=== PATIENT | female | born 1990 | race American Indian/Alaskan Native ===

== ENCOUNTER 2018-12-08 12:00 | Emergency (ER) | payer MEDICAID ==
[2018-12-08 12:07] VITALS: BP 136/83
--- NOTE | 2018-12-08 12:08 | Emergency Department Report ---
Blank Doc - Documentation Documentation: This is a 28-year-old female that presents with bilateral cervical paraspinal pain. No midline spine tenderness. No fever or chisll. No headache. STated 9 weeks ago had a vaginal delivery with no complications. Patient denies getting any epidural. This initial assessment/diagnostic orders/clinical plan/treatment(s) is/are subject to change based on patient's health status, clinical progression and re- assessment by fellow clinical providers in the ED. Further treatment and workup at subsequent clinical providers discretion. Patient/guardians urged not to elope from the ED as their condition may be serious if not clinically assessed and managed. Initial orders include: 1- Patient sent to [facility] for further evaluation and treatment
[2018-12-08] MEDS ORDERED: TORADOL IM ONE (12:45)
--- NOTE | 2018-12-08 13:28 | Emergency Department Report ---
ED Neck Pain/Injury HPI - General Chief Complaint: Neck Pain/Injury Stated Complaint: NECK PAIN/BACK PAIN Time Seen by Provider: 12/08/18 12:05 Mode of arrival: Ambulatory Limitations: No Limitations - History of Present Illness Initial Comments: 28-year-old female presents to the hospital complaints of left-sided neck pain this started the day after discharge from the hospital. Patient is 9 days status post vaginal delivery. She did not receive epidural. She denies any. Nasal infections or complications. She denies fever, sore throat, ear pain, nausea, vomiting, blurred patient, weakness, or numbness. Pain is constant, worse with palpation, movement, rated 10/10 in intensity. She is not taking any medication for pain because she is breast-feeding. [facility]: Dr. Kelly Brooke - Related Data Previous Rx's Medication Instructions Recorded Last Taken Type oxyCODONE /ACETAMINOPHEN [Percocet 1 tab PO Q6HR PRN #20 tablet 11/29/18 Unknown Rx 5/325] Cyclobenzaprine [Flexeril] 10 mg PO TID PRN #20 tablet 12/08/18 Unknown Rx Ibuprofen [Motrin 600 MG tab] 600 mg PO Q8H PRN #30 tablet 12/08/18 Unknown Rx Allergies Allergy/AdvReac Type Severity Reaction Status Date / Time No Known Allergies Allergy Verified 11/29/18 11:15 ED Review of Systems ROS: Stated complaint: NECK PAIN/BACK PAIN Other details as noted in HPI Comment: All other systems reviewed and negative ED Past Medical Hx - Past Medical History Previous Medical History?: No Hx Hypertension: No Hx Diabetes: No Hx Deep Vein Thrombosis: No Hx Renal Disease: No Hx Sickle Cell Disease: No Hx Seizures: No Hx Asthma: No Hx HIV: No - Surgical History Past Surgical History?: Yes - Social History Smoking Status: Never Smoker Substance Use Type: None - Medications Home Medications: Home Medications Medication Instructions Recorded Confirmed Last Taken Type oxyCODONE /ACETAMINOPHEN [Percocet 1 tab PO Q6HR PRN #20 tablet 11/29/18 Unknown Rx 5/325] Cyclobenzaprine [Flexeril] 10 mg PO TID PRN #20 tablet 12/08/18 Unknown Rx Ibuprofen [Motrin 600 MG tab] 600 mg PO Q8H PRN #30 tablet 12/08/18 Unknown Rx ED Physical Exam - General Limitations: No Limitations - Other Other exam information: General: No limitations, patient is alert in no acute distress Head exam: Atraumatic, normocephalic Eyes exam: Normal appearance, pupils equal reactive to light, extraocular movements intact ENT: Moist mucous membrane, normal oropharynx without exudate. Neck exam: Normal inspection, full range of motion, no meningismus, left sternocleidomastoid and trapezius muscle tenderness extending from the base of the neck to the shoulder. Worse with movement. Respiratory exam: Clear to auscultation bilateral, no wheezes, rales, crackles Cardiovascular: Normal rate and rhythm, normal heart sounds Abdomen: Soft, nondistended, and nontender, with normal bowel sounds, no rebound, or guarding Extremity: Full range of motion normal inspection no deformity Back: Normal Inspection, full range of motion, no tenderness Neurologic: Alert, oriented x3, cranial nerves intact, no motor or sensory deficit Psychiatric: normal affect, normal mood Skin: Warm, dry, intact ED Course Vital Signs 12/08/18 12:06 Temperature 98.4 F Pulse Rate 51 L Respiratory 20 Rate Blood Pressure 136/83 O2 Sat by Pulse 100 Oximetry ED Medical Decision Making - Medical Decision Making Patient has unilateral neck pain along the muscle without signs of infection, associated symptoms, or lymphadenopathy. Will be treated symptomatically for muscle strain - Differential Diagnosis muscle spasm, infection, sah Critical Care Time: No Critical care attestation.: If time is entered above; I have spent that time in minutes in the direct care of this critically ill patient, excluding procedure time. ED Disposition Clinical Impression: Neck muscle spasm Disposition: - TO HOME OR SELFCARE Is pt being admited?: No Does the pt Need Aspirin: No Condition: Stable Instructions: Spasmodic Torticollis (ED) Additional Instructions: Take the medication as prescribed. Follow up with your doctor or the clinic/doctor provided. Return if symptoms worsen as indicated by your discharge instructions Your case was discussed with the [facility] doctors because you are breast-feeding. Flexeril is not approved or contraindicated while breast-feeding. There is not enough data to demonstrate benefit or harm to the baby. Please pump and dump will taking Flexeril for 24 hour after your last dose. You do not have to do this with the Motrin Prescriptions: Cyclobenzaprine [Flexeril] 10 mg PO TID PRN #20 tablet PRN Reason: Muscle Spasm Ibuprofen [Motrin 600 MG tab] 600 mg PO Q8H PRN #30 tablet PRN Reason: Pain Referrals: CASANDRA LASSITER MD [Primary Care Provider] - 3-5 Days [facility] [Provider Group] - 3-5 Days Time of Disposition: 13:32
== END 2018-12-08 13:38 | disposition home or self-care (01) ==
LOC: ED 12:00
DX: M54.2 Cervicalgia (principal)
CPT/HCPCS: 96372; 99282; J1885

== ENCOUNTER 2019-02-13 20:40 | Emergency (ER) | payer MEDICAID ==
--- NOTE | 2019-02-13 20:51 | Event Note ---
ED Screening Note ED Screening Note: pt states that two days ago began having white vaginal discharge, states she is having an odor no itching or burning no frequency no dysuria pt is sexually active, states uses protection states she just started control last month LNMP: January 29 no PMHx no allergies to meds +smoker +marijuana +occ drinker This initial assessment/diagnostic orders/clinical plan/treatment(s) is/are subject to change based on patients health status, clinical progression and re- assessment by fellow clinical providers in the ED. Further treatment and workup at subsequent clinical providers discretion. Patient/guardian urged not to elope from the ED as their condition may be serious if not clinically assessed and managed. Initial orders include: UA, urine preg, wet prep, G/C
[2019-02-13 20:52] VITALS: BP 131/84
[2019-02-13 21:20] LABS: Bacteria,Urine 1+ /HPF (Negative); Bilirubin,Urine NEG (Negative); Blood,Urine NEG (Negative); Color,Urine Yellow (Yellow); HCG Qualitative,Urine Negative (Negative); Mucus,Urine FEW /HPF; Protein,Urine <15 mg/dL mg/dL (Negative)
== END 2019-02-13 22:00 | disposition left against medical advice (07) ==
LOC: ED 20:40
DX: R10.9 Unspecified abdominal pain (principal); Z53.21 Procedure and treatment not carried out due to patient leaving prior to being seen by health care provider
CPT/HCPCS: 81001; 81025